=== PATIENT | female | born 1950 | race Caucasian/White ===

== ENCOUNTER 2022-10-27 09:08 | Inpatient (IN) | payer OTHER, MEDICARE, SELFPAY ==
[2022-10-27] VITALS (36 sets, daily range): BP systolic 117–152; BP diastolic 55–95; PULSE 94–133; RESP 16–22; TEMP 36.8; O2SAT 88–100; BMI 30.7
[2022-10-27 09:25] LABS: Add Manual Diff / Slide Review NO; Basophils Absolute Auto 0 /uL (0-100); Basophils Percent Auto 0.1 % (0-2); Eosinophils Absolute Auto 100 /uL (0-450); Eosinophils Percent Auto 0.5 % (2-4); Hematocrit 44.6 % (36-46); Hemoglobin 14.8 g/dL (12.0-16.0); Lymphocytes Absolute Auto 400 /uL (1100-4500); Lymphocytes Percent Auto 3.6 % (25-40); Mean Corpuscular HGB Conc 33.2 % (30-36); Mean Corpuscular Hemoglobin 28.4 PG (26-34); Mean Corpuscular Volume 85.3 fL (80-100); Monocytes Absolute Auto 200 /uL (0-900); Monocytes Percent Auto 2.1 % (3-14); Neutrophils Absolute Auto 10700 /uL (1500-7000); Neutrophils Percent Auto 93.7 % (50-75); Platelet Count 249 X10^3/uL (150-400); Red Blood Cell Count 5.23 X10^6/uL (4.0-5.2); White Blood Cell Count 11.4 X10^3/uL (4.5-11.0)
[2022-10-27 09:41] LABS: Alanine Aminotransferase 37 IU/L (<35); Albumin 4.5 g/dL (3.5-5.0); Albumin Globulin Ratio 1.2 (1.0-2.8); Alkaline Phosphatase 80 U/L (38-126); Aspartate Aminotransferase 30 IU/L (14-36); BUN Creatinine Ratio 23.3 (6-22); Bilirubin Total 0.6 mg/dL (0.2-1.3); Blood Urea Nitrogen 17 mg/dL (7-17); Calcium 9.4 mg/dL (8.4-10.2); Carbon Dioxide 26 mmol/L (22-32); Chloride 104 mmol/L (98-107); Estimated Glomerular Filt Rate > 60 mL/min (>60); Globulin 3.7 g/dL (1.7-4.1); Glucose 154 mg/dL (80-110); HEMOLYSIS < 15 (0-50); Lipase 151 U/L (23-300); Potassium 4.1 mmol/L (3.4-5.1); Sodium 139 mmol/L (137-145); Total Protein 8.2 g/dL (6.3-8.2)
[2022-10-27] MEDS: SODIUM CHLORIDE 0.9% 1,000 ML 1000 ML IV (10:13)
[2022-10-27] MEDS: ONDANSETRON 4 MG/2 ML INJ IV ×3 (10:13→19:34)
--- NOTE | 2022-10-27 10:21 | DI.CT.S_ITS ---
PROCEDURE: CT ABDOMEN PELVIS W CON INDICATIONS: epigastric/upper abd pain, v/d, hx pancreatitis TECHNIQUE: After the administration of intravenous contrast, axial sections acquired from the lung bases to the pubic symphysis. Coronal and sagittal reformats were performed. For radiation dose reduction, the following was used: automated exposure control, adjustment of mA and/or kV according to patient size. COMPARISON: None. FINDINGS: Image quality: Excellent. Lung bases: Unremarkable. Heart: No significant findings. ABDOMEN: Liver: Mild diffuse hepatic steatosis.. Gallbladder: Surgically absent. Post cholecystectomy prominence of the extrahepatic duct lobe without obstructing mass. Biliary ducts: Unremarkable. Pancreas: Unremarkable. Spleen: Unremarkable. Adrenal Glands: Unremarkable. Kidneys and Ureters: Unremarkable. Stomach and Bowel: Mild hiatal hernia. Stomach, small bowel loops, and colon are unremarkable. Appendectomy clips. Peritoneum: No abnormal intraperitoneal fluid. No free air. Ventral Wall: No hernias. Abdominal Nodes: No retroperitoneal or mesenteric adenopathy by size criteria. Vessels: Aorta and inferior vena cava are normal in size. PELVIS: Pelvic Organs: Unremarkable. Bladder: Unremarkable. Pelvic Nodes: No enlarged lymph nodes. Miscellaneous: No hernias are seen. Bones: Lumbar degenerative change. No lytic or blastic bony lesions. No compression fractures. 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 IMPRESSION: 1. No evidence of acute abdominal process. 2. Mild diffuse hepatic steatosis. 3. Remote cholecystectomy. 4. Small hiatal hernia. Dictated by: Terrell Leonard M.D. on 10/27/2022 at 11:10 Approved by: Terrell Leonard M.D. on 10/27/2022 at 11:14
--- NOTE | 2022-10-27 10:22 | ED.ABDPAIN ---
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 this morning epigastric pain, vomiting and diarrhea. Patient states she is had persistent pain will get slightly better after she vomits and then build again until she vomits again. Patient states each time she vomits she is also had diarrhea. She states it has been watery without any bright red blood or black. She states it starting to radiate a little bit towards her back. Patient denies any fevers or chills but states she is felt cold. She denies any chest pain or pressure. No shortness of breath. Denies dysuria urgency or frequency. Patient states she did have pancreatitis about 5 years ago. She states this pain feels similar. 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 She has noted she is been having some GERD symptoms for the past 3 weeks and started Prilosec from [facility] and has been taking that daily she takes Restasis and an allergy pill but no other daily medications. She states she would a cholecystectomy 20 years ago, her last colonoscopy they found a precancerous polyp but required resection based on the location and they removed her appendix at the same time based on location. No tobacco, rare alcohol nothing in the last several weeks. No illicit. Patient sees Dr. Jude Robbins at [facility] is her primary care. Nurse practitioner through gastroenterology is Megan Hopkins with [facility] in [place] and Dr. Enriquez typically does her colonoscopies. Related Data Allergies Allergy/AdvReac Type Severity Reaction Status Date / Time codeine Allergy Verified 10/27/22 09:19 Sulfa (Sulfonamide Allergy Verified 10/27/22 09:19 Antibiotics) Review of Systems Review of Systems ROS Unobtainable: All systems reviewed & are unremarkable except as noted in HPI and below Patient History Social History Smoking Status: Unknown if ever smoked Smoking Status: Unknown if ever smoked alcohol intake frequency: holidays/special occasions only Substance Use Type: does not use Exam Narrative Exam Narrative: GENERAL: Alert and oriented x three, female in [id number] distress. Patient appears uncomfortable. HEENT: Head normocephalic, atraumatic, EOMI, pupils reactive, face symmetric, moist mucous membranes NECK: Supple, full range of motion CARDIOVASCULAR: Regular rate and rhythm without murmurs, rubs or gallops. RESPIRATORY: Breath sounds equal bilaterally, no wheezes rales or rhonchi. ABDOMEN: Soft, nontender. Normoactive bowel sounds all 4 quadrants. No guarding or rebound, rigidity, no mass, no pulsatile mass or bruit. : No CVA tenderness EXTREMITIES: Normal range of motion, no clubbing or edema. Neurovascularly intact NEUROLOGICAL: Cranial nerves II through XII grossly intact. Moving all extremities SKIN: Warm, dry, no petechiae, no rashes or lesions. Initial Vital Signs Initial Vital Signs: Vital Signs Temperature 98.2 F 10/27/22 09:15 Pulse Rate 119 H 10/27/22 09:15 Respiratory Rate 16 10/27/22 09:15 Blood Pressure 148/83 H 10/27/22 09:15 Pulse Oximetry 98 10/27/22 09:15 Oxygen Delivery Method Room Air 10/27/22 09:15 Course Orders Ordered: ED Orders 10/27/22 09:20 Complete Blood Count AUTO DIFF Stat Comprehensive Metabolic Panel Stat Lactate (Lactic Acid) Stat Lipase Stat PTT Partial Thromboplastin Sami Stat Prothrombin Time INR Stat Troponin & CK Cardiac Panel Stat 10/27/22 09:32 EKG-12 Lead Stat 10/27/22 10:05 GI Panel (Film Array) Stat 10/27/22 10:21 CT abdomen pelvis w con Stat 10/27/22 11:55 Blood Culture Stat Lactated Ringer's (Lactated Ringers) 1,000 mls @ 150 mls/hr IV CONT ESTHER Last Admin: 10/27/22 15:34 Dose: 150 mls/hr Documented By: ARLETTE Ondansetron HCl (Ondansetron 4 Mg/2 Ml Inj) 4 mg IV NOW PRN PRN Reason: Nausea And Vomiting Last Admin: 10/27/22 10:13 Dose: 4 mg Documented By: CTS Discontinued Medications Fidaxomicin (Fidaxomicin 200 Mg Tablet) 200 mg PO NOW ONE Stop: 10/27/22 12:19 Last Admin: 10/27/22 12:35 Dose: 200 mg Documented By: ARLETTE Hydromorphone HCl (Hydromorphone 0.5 Mg Inj) 0.5 mg IV NOW ONE Stop: 10/27/22 11:26 Last Admin: 10/27/22 11:53 Dose: 0.5 mg Documented By: ARLETTE Sodium Chloride (Normal Saline 0.9%) 1,000 mls @ 1,000 mls/hr IV BOLUS ONE Stop: 10/27/22 11:08 Last Infusion: 10/27/22 12:35 Dose: 1,000 mls/hr Documented By: Admin: 10/27/22 10:13 Dose: 1,000 mls/hr Documented By: SEVERINO Lactated Ringer's (Lactated Ringers) 1,000 mls @ 1,000 mls/hr IV BOLUS ONE Stop: 10/27/22 13:26 Last Infusion: 10/27/22 15:33 Dose: 0 mls/hr Documented By: Admin: 10/27/22 12:34 Dose: 1,000 mls/hr Documented By: ARLETTE Lactated Ringer's (Lactated Ringers) 1,000 mls @ 1,000 mls/hr IV BOLUS ONE Stop: 10/27/22 17:24 Metoclopramide HCl (Metoclopramide 10 Mg/2 Ml Inj) 10 mg IV NOW ONE Stop: 10/27/22 15:29 Last Admin: 10/27/22 15:33 Dose: 10 mg Documented By: ARLETTE Morphine Sulfate (Morphine 2 Mg/Ml Inj) 2 mg IV NOW ONE Stop: 10/27/22 10:22 Last Admin: 10/27/22 10:50 Dose: 2 mg Documented By: ARLETTE Ondansetron HCl (Ondansetron 4 Mg/2 Ml Inj) 4 mg IV NOW ONE Stop: 10/27/22 12:01 Last Admin: 10/27/22 12:03 Dose: 4 mg Documented By: ARLETTE Pantoprazole Sodium (Pantoprazole 40 Mg Vial) 80 mg IV NOW ONE Stop: 10/27/22 12:18 Last Admin: 10/27/22 12:32 Dose: 80 mg Documented By: ARLETTE Vital Signs Vital signs: Vital Signs - 8 hr 10/27/22 10:00 10/27/22 10:30 10/27/22 11:01 Pulse Rate 127 H 116 H 110 H Blood Pressure Pulse Oximetry 97 100 98 Oxygen Delivery Method Oxygen Flow Rate 10/27/22 11:33 10/27/22 12:00 10/27/22 12:09 Pulse Rate 116 H 115 H Blood Pressure 126/59 L Pulse Oximetry 100 99 Oxygen Delivery Method Oxygen Flow Rate 10/27/22 12:09 10/27/22 12:14 10/27/22 12:14 Pulse Rate 105 H 94 H Blood Pressure 128/60 Pulse Oximetry 96 95 Oxygen Delivery Method Oxygen Flow Rate 10/27/22 12:15 10/27/22 12:15 10/27/22 12:30 Pulse Rate 94 H Blood Pressure 126/62 141/83 H Pulse Oximetry 92 Oxygen Delivery Method Oxygen Flow Rate 10/27/22 12:30 10/27/22 12:45 10/27/22 12:45 Pulse Rate 96 H 101 H Blood Pressure 137/80 Pulse Oximetry 89 L 92 Oxygen Delivery Method Nasal Cannula Nasal Cannula Oxygen Flow Rate 2 5 10/27/22 13:00 10/27/22 13:00 10/27/22 13:15 Pulse Rate 101 H 99 H Blood Pressure 128/70 Pulse Oximetry 99 98 Oxygen Delivery Method Oximask Oximask Oxygen Flow Rate 4 2 10/27/22 13:15 10/27/22 13:30 10/27/22 13:30 Pulse Rate 95 H Blood Pressure 149/87 H 143/78 H Pulse Oximetry 99 Oxygen Delivery Method Oxygen Flow Rate 10/27/22 13:45 10/27/22 13:45 10/27/22 14:00 Pulse Rate 97 H 103 H Blood Pressure 143/76 H Pulse Oximetry 99 95 Oxygen Delivery Method Oximask Oxygen Flow Rate 2 10/27/22 14:01 10/27/22 14:01 10/27/22 14:15 Pulse Rate 107 H Blood Pressure 142/76 H 152/95 H Pulse Oximetry 93 Oxygen Delivery Method Oxygen Flow Rate 10/27/22 14:15 10/27/22 14:30 10/27/22 14:30 Pulse Rate 99 H 99 H Blood Pressure 144/78 H Pulse Oximetry 90 L 97 Oxygen Delivery Method Oximask Oxygen Flow Rate 2 10/27/22 14:45 10/27/22 14:45 10/27/22 15:00 Pulse Rate 98 H Blood Pressure 143/73 H 144/76 H Pulse Oximetry 97 Oxygen Delivery Method Oxygen Flow Rate 10/27/22 15:00 10/27/22 15:30 10/27/22 15:30 Pulse Rate 102 H 121 H Blood Pressure 143/65 H Pulse Oximetry 97 93 Oxygen Delivery Method Oximask Room Air Oxygen Flow Rate 2 10/27/22 15:45 10/27/22 15:45 10/27/22 16:00 Pulse Rate 114 H Blood Pressure 127/62 129/62 Pulse Oximetry 91 Oxygen Delivery Method Oxygen Flow Rate 10/27/22 16:00 10/27/22 16:15 10/27/22 16:15 Pulse Rate 108 H 108 H Blood Pressure 134/60 Pulse Oximetry 88 L 96 Oxygen Delivery Method Room Air Oximask Oxygen Flow Rate 2 MDM - Abdominal Pain Lab Data 10/27/22 09:20 10/27/22 09:20 Labs: Lab Results 10/27/22 10/27/22 10/27/22 Range/Units 09:20 09:20 09:20 WBC 11.4 H (4.5-11.0) X10^3/uL RBC 5.23 H (4.0-5.2) X10^6/uL Hgb 14.8 (12.0-16.0) g/dL Hct 44.6 (36-46) % MCV 85.3 (80-100) fL MCH 28.4 (26-34) PG MCHC 33.2 (30-36) % RDW 14.0 (11.6-14.8) % Plt Count 249 (150-400) X10^3/uL Neut % (Auto) 93.7 H (50-75) % Lymph % (Auto) 3.6 L (25-40) % Lipscomb % (Auto) 2.1 L (3-14) % Eos % (Auto) 0.5 L (2-4) % Baso % (Auto) 0.1 (0-2) % Neut # (Auto) 49003 H (6364-0176) /uL Lymph # (Auto) 400 L (7509-7623) /uL Lipscomb # (Auto) 200 (0-900) /uL Eos # (Auto) 100 (0-450) /uL Baso # (Auto) 0 (0-100) /uL PT 11.9 (10.1-12.7) SECONDS INR 1.0 (0.9-1.3) APTT 30 (26-36) SECONDS Sodium 139 (137-145) mmol/L Potassium 4.1 (3.4-5.1) mmol/L Chloride 104 (98-107) mmol/L Carbon Dioxide 26 (22-32) mmol/L BUN 17 (7-17) mg/dL Creatinine 0.73 (0.52-1.04) mg/dL Estimated GFR > 60 (>60) mL/min BUN/Creatinine Ratio 23.3 H (6-22) Glucose 154 H (80-110) mg/dL Lactate (0.7-2.1) mmol/L Calcium 9.4 (8.4-10.2) mg/dL Total Bilirubin 0.6 (0.2-1.3) mg/dL AST 30 (14-36) IU/L ALT 37 H (<35) IU/L Alkaline Phosphatase 80 (38-126) U/L Total Creatine Kinase (30-135) U/L CK-MB (CK-2) CK-MB (CK-2) Rel Index Troponin I (0.01-0.034) ng/mL Total Protein 8.2 (6.3-8.2) g/dL Albumin 4.5 (3.5-5.0) g/dL Globulin 3.7 (1.7-4.1) g/dL Albumin/Globulin Ratio 1.2 (1.0-2.8) Lipase 151 (23-300) U/L Stl C. cayetanensis PCR (Not Detect) Stool Rotavirus (PCR) (Not Detect) Stool Adenovirus (PCR) (Not Detect) Stool Astrovirus (PCR) (Not Detect) Stool Cryptosporidium PCR (Not Detect) Stl E.coli Shiga Tox PCR (Not Detect) St Sh/Enteroin Ecoli PCR (Not Detect) Stool E coli O157 PCR (Not Detect) Stl Enterotoxigenic E PCR (Not Detect) Stool EPEC (PCR) (Not Detect) Stl E. histolytica PCR (Not Detect) Stool Giardia Lamblia PCR (Not Detect) Stool Sapovirus (PCR) (Not Detect) Stl P. shigelloides PCR (Not Detect) St Y.enterocolitica PCR (Not Detect) Stool Vibrio (PCR) (Not Detect) Stl Vibrio cholerae PCR (Not Detect) Stl Enteroaggr Ecoli PCR (Not Detect) Stl Norovirus GI/GII PCR (Not Detect) Campylobacter (PCR) (Not Detect) C. difficile Tox (PCR) (Not Detect) Salmonella (PCR) (Not Detect) 10/27/22 10/27/22 10/27/22 Range/Units 09:20 09:20 10:05 WBC (4.5-11.0) X10^3/uL RBC (4.0-5.2) X10^6/uL Hgb (12.0-16.0) g/dL Hct (36-46) % MCV (80-100) fL MCH (26-34) PG MCHC (30-36) % RDW (11.6-14.8) % Plt Count (150-400) X10^3/uL Neut % (Auto) (50-75) % Lymph % (Auto) (25-40) % Lipscomb % (Auto) (3-14) % Eos % (Auto) (2-4) % Baso % (Auto) (0-2) % Neut # (Auto) (2927-1365) /uL Lymph # (Auto) (1413-5572) /uL Lipscomb # (Auto) (0-900) /uL Eos # (Auto) (0-450) /uL Baso # (Auto) (0-100) /uL PT (10.1-12.7) SECONDS INR (0.9-1.3) APTT (26-36) SECONDS Sodium (137-145) mmol/L Potassium (3.4-5.1) mmol/L Chloride (98-107) mmol/L Carbon Dioxide (22-32) mmol/L BUN (7-17) mg/dL Creatinine (0.52-1.04) mg/dL Estimated GFR (>60) mL/min BUN/Creatinine Ratio (6-22) Glucose (80-110) mg/dL Lactate 1.8 (0.7-2.1) mmol/L Calcium (8.4-10.2) mg/dL Total Bilirubin (0.2-1.3) mg/dL AST (14-36) IU/L ALT (<35) IU/L Alkaline Phosphatase (38-126) U/L Total Creatine Kinase 44 (30-135) U/L CK-MB (CK-2) TNP CK-MB (CK-2) Rel Index TNP Troponin I < 0.012 (0.01-0.034) ng/mL Total Protein (6.3-8.2) g/dL Albumin (3.5-5.0) g/dL Globulin (1.7-4.1) g/dL Albumin/Globulin Ratio (1.0-2.8) Lipase (23-300) U/L Stl C. cayetanensis PCR Not detected (Not Detect) Stool Rotavirus (PCR) Not detected (Not Detect) Stool Adenovirus (PCR) Not detected (Not Detect) Stool Astrovirus (PCR) Not detected (Not Detect) Stool Cryptosporidium PCR Not detected (Not Detect) Stl E.coli Shiga Tox PCR Not detected (Not Detect) St Sh/Enteroin Ecoli PCR Not detected (Not Detect) Stool E coli O157 PCR Not detected (Not Detect) Stl Enterotoxigenic E PCR Not detected (Not Detect) Stool EPEC (PCR) Not detected (Not Detect) Stl E. histolytica PCR Not detected (Not Detect) Stool Giardia Lamblia PCR Not detected (Not Detect) Stool Sapovirus (PCR) Not detected (Not Detect) Stl P. shigelloides PCR Not detected (Not Detect) St Y.enterocolitica PCR Not detected (Not Detect) Stool Vibrio (PCR) Not detected (Not Detect) Stl Vibrio cholerae PCR Not detected (Not Detect) Stl Enteroaggr Ecoli PCR Not detected (Not Detect) Stl Norovirus GI/GII PCR Detected H (Not Detect) Campylobacter (PCR) Not detected (Not Detect) C. difficile Tox (PCR) Detected H (Not Detect) Salmonella (PCR) Not detected (Not Detect) Imaging Data CT scan - abdomen/pelvis: Radiologist's Impression: Close Abdomen/Pelvis CT (Signed) Terrell Leonard - 10/27/22 Launch?[address] [address] [address] Scan Report Signed Patient: Kathleen Linda MR#: [id number] : 1950 Acct:[id number] Age/Sex: 72 / F Date of Service: 10/27/22 Loc: ED Accession Number: [id number] ?? Procedure: CT abdomen pelvis w con Ordering Provider: Lizzie Alexander D.O. PROCEDURE:? CT ABDOMEN PELVIS W CON ? INDICATIONS:? epigastric/upper abd pain, v/d, hx pancreatitis ? TECHNIQUE:? After the administration of intravenous contrast, axial sections acquired from the lung bases to the pubic symphysis.? Coronal and sagittal reformats were performed.? For radiation dose reduction, the following was used:? automated exposure control, adjustment of mA and/or kV according to patient size.? ? COMPARISON:? None. ? FINDINGS:? Image quality:? Excellent.? ? Lung bases:? Unremarkable. Heart:? No significant findings. ? ABDOMEN: Liver:? Mild diffuse hepatic steatosis..? ? Gallbladder:? Surgically absent.? Post cholecystectomy prominence of the extrahepatic duct lobe without obstructing mass. Biliary ducts:? Unremarkable.? ? Pancreas:? Unremarkable.? ? Spleen:? Unremarkable.? ? Adrenal Glands:? Unremarkable.? ? Kidneys and Ureters:? Unremarkable.? ? ? Stomach and Bowel:? Mild hiatal hernia.? Stomach, small bowel loops, and colon are unremarkable.? Appendectomy clips. Peritoneum:? No abnormal intraperitoneal fluid.? No free air.? ? Ventral Wall: ? No hernias.? Abdominal Nodes:? No retroperitoneal or mesenteric adenopathy by size criteria.? Vessels:? Aorta and inferior vena cava are normal in size.? ? PELVIS: Pelvic Organs:? Unremarkable.? ? Bladder:? Unremarkable.? ? Pelvic Nodes: No enlarged lymph nodes.? Miscellaneous: No hernias are seen. ? ? ? Bones:? Lumbar degenerative change.? No lytic or blastic bony lesions.? No compression fractures.? 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 ? ? IMPRESSION:? ? 1. No evidence of acute abdominal process. ? 2. Mild diffuse hepatic steatosis. ? 3. Remote cholecystectomy. ? 4. Small hiatal hernia.? ? ? Dictated by: Terrell Leonard M.D. on 10/27/2022 at 11:10 ? ? Approved by: Terrell Leonard M.D. on 10/27/2022 at 11:14?? ECG Data Attestation: I personally reviewed and interpreted this ECG as follows: Prior ECG tracings: not available for review Interpretation: Sinus tachycardia rate of 125 WI 156 QRS is 74 QTC of 447. No acute ST elevation or depression appreciated. No prior available for review. MDM Narrative Medical decision making narrative: This is a 72-year-old female who presents with complaint of epigastric pain with sudden onset this morning at about 3:00 a.m. with nausea vomiting and diarrhea that has been persistent. Patient denies black or bloody stools. She states pain does radiate somewhat towards her back. She has had pancreatitis about 5 years ago she denies recurrent episodes but states this feels similar. 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 Patient had labs including CBC, CMP and lipase, electrolytes, renal function, LFTs show an AST ALT of 37 normal bilirubin lipase of 151, patient is a mild leukocytosis of 11.4, leftward shift, no bandemia. Patient is noted to be sinus tachycardia in the 120s to 110s, patient had lactate blood cultures and plan for CT abdomen pelvis for further evaluation. CT abdomen pelvis shows no evidence acute abdominal process mild diffuse hepatic steatosis and small hiatal hernia. Patient's was able to give stool sample she is positive for norovirus and C diff on her stool sample, C diff was sent out for confirmatory testing. Patient was quite painful she would a dose of morphine with minimal improvement. Was given a dose of Dilaudid this was helpful for her pain but then she dropped her O2 sat slightly. She Behavioral in conversant easily. I do not feel she requires Narcan we will continue to monitor given a 2 L of fluids with LR. We will give a dose of oral antibiotic for Dificid and depending on if she is able to tolerate orals may require observation. Patient tolerated oral Dificid but did have some persistent low O2 was improving but then tried an oral challenge with liquids and vomited again despite additional antinausea medications. Patient does not seem to be tolerating orals persistently and discussed with Dr. Quesada who accepts for observation he asks if we will add an additional 1L of LR patient has had two and then at 150mL currently. Accepts for observation. Discharge Plan Departure Patient Disposition: Admitted as Observation Clinical Impression: Abdominal pain, vomiting, and diarrhea, Hepatic steatosis, Infection due to Norovirus species, C. difficile diarrhea Admit Date/Time: 10/27/22 16:27 Admit Provider: Jeffry Garza
[2022-10-27] MEDS: MORPHINE 2 MG/ML INJ IV (10:50)
[2022-10-27] MEDS: HYDROMORPHONE 0.5 MG INJ IV ×2 (11:53→19:34)
[2022-10-27 12:01] LABS: Prothrombin Time 11.9 SECONDS (10.1-12.7)
[2022-10-27 12:03] LABS: Adenovirus F 40/41 Not Detected (Not Detect); Campylobacter Not Detected (Not Detect); Cryptosporidium Not Detected (Not Detect); Cyclospora cayetanensis Not Detected (Not Detect); Entamoeba histolytica Not Detected (Not Detect); Enteroaggregative E.coli Not Detected (Not Detect); Enteropathogenic E.coli Not Detected (Not Detect); Enterotoxigenic E.coli It/st Not Detected (Not Detect); Giardia lamblia Not Detected (Not Detect); Plesiomonsa shigelloides Not Detected (Not Detect); Salmonella Not Detected (Not Detect); Shiga-like toxin-prod E.coli Not Detected (Not Detect); Shigella/Enteroinvasive E.coli Not Detected (Not Detect); Vibrio Not Detected (Not Detect); Vibrio cholerae Not Detected (Not Detect); Yersinia enterocolitica Not Detected (Not Detect)
[2022-10-27 12:04] LABS: Astrovirus Not Detected (Not Detect); Norovirus GI/GII Detected (Not Detect); Rotavirus A Not Detected (Not Detect); Sapovirus Not Detected (Not Detect)
[2022-10-27 12:04] LABS: PTT Partial Thromboplastin Tim 30 SECONDS (26-36)
[2022-10-27 12:05] LABS: Creatine Kinase 44 U/L (30-135)
[2022-10-27 12:05] LABS: Clostridium difficile toxin AB Detected (Not Detect)
[2022-10-27 12:06] LABS: Lactate (Lactic Acid) 1.8 mmol/L (0.7-2.1)
[2022-10-27 12:19] LABS: Troponin I < 0.012 ng/mL (0.01-0.034)
[2022-10-27] MEDS: PANTOPRAZOLE 40 MG VIAL 80 MG IV (12:32)
[2022-10-27] MEDS: LACTATED RINGERS 1,000 ML 1000 ML IV (12:34)
[2022-10-27] MEDS: FIDAXOMICIN 200 MG TABLET PO (12:35)
--- NOTE | 2022-10-27 13:12 | PC.NURSE ---
Pt excessively sleepy after dilaudid 0.5mg, placed on 2L initially to maintain <92%, then 5L to maintain <92% and now 4L on Oximask for 99%. Provider aware and consulted throughout the process.
[2022-10-27] MEDS: METOCLOPRAMIDE 10 MG/2 ML INJ IV (15:33)
[2022-10-27] MEDS: LACTATED RINGERS 1,000 ML 150 ML IV ×2 (15:34→22:10)
--- NOTE | 2022-10-27 15:38 | PC.NURSE ---
PO challenge at 1430, seemed to tolerate well. Then at 1515 pt woke up and vomited for 2-3 mins nonstop with explosive watery diarrhea. Physician aware.
--- NOTE | 2022-10-27 20:03 | P.HP_ITS ---
History of Present Illness History of Present Illness Date Patient Seen: 10/27/22 Time Patient Seen: 16:35 Chief complaint: V/D/ABD pain feels like pancreatitis since 3am Narrative: Kathleen Linda is a 72-year-old female with history of prior pancreatitis, GERD, split pancreas with two bile ducts, dry eye arrived in ED with complaint of sudden onset 3:00 a.m. this morning epigastric pain, vomiting and diarrhea.? Patient states she is had persistent pain, radiates to her back, will get slightly better after she vomits and then build again until she vomits again.? Diarrhea watery without any bright red blood or black.?Patient denies any fevers or chills but states she is felt cold. Cholecystectomy 20 years ago, her last colonoscopy they found a precancerous polyp but required resection based on the location and they removed her appendix at the same time based on location.? No tobacco, rare alcohol nothing in the last several weeks.? No illicit.? Patient sees Dr. Jude Robbins at [facility] is her primary care.? Nurse practitioner through gastroenterology is Megan Hopkins with [facility] in [place] and Dr. Enriquez typically does her colonoscopies.? On admit patient boarding in ED, last vomited at 3:00 p.m. earlier today but continues to have ongoing diarrhea, failed oral challenge in the ED and is unable to keep anything down without vomiting, abdominal pain is controlled with medication. Patient's vitals 98.2, 127/55, continues to be tachycardic 100-110, 16, 93% on 2 L. WBC 11.4, neutrophils 10,700, lymph 400, glucose 154, lactate, troponin are WNL, lipase 151. Patient's abdomen pelvis CT no acute issues, hepatic steatosis small hiatal hernia. EKG sinus tachycardia rate [address] or T-wave changes. Patient is stable resting well in no distress, positive for C diff and norovirus. Admitted for observation. On admit patient denies chest pain, shortness in breath, headache, changes in vision, difficulty swallowing, speech impairment, numbness, tingling, difficulty with ambulation, recent falls, head injury, LOC, fever, body aches, chills, cough, recent exposure to illness, urinary incontinence/retention, dysuria, frequency, urgency, hematuria, melena, rashes, recent changes to medication, illness, injury, or trauma. [facility] Medical History (Updated 10/28/22 @ 00:50 by EMERSON Gabriel) History of pancreatitis Surgical History (Updated 10/28/22 @ 00:50 by EMERSON Gabriel) History of appendectomy History of cholecystectomy Family History Father No problems noted. Mother No problems noted. Social History Smoking Status: Unknown if ever smoked Meds Home Medications and Allergies Allergies Allergy/AdvReac Type Severity Reaction Status Date / Time codeine Allergy Verified 10/27/22 09:19 Sulfa (Sulfonamide Allergy Verified 10/27/22 09:19 Antibiotics) Review of Systems Review of Systems Narrative: All 12 point systems reviewed with the patient and are negative except otherwise documented. Exam Vital Signs (past 8 hours): - 10/27/22 12:09 10/27/22 12:09 10/27/22 12:14 Pulse Rate 105 H Blood Pressure 126/59 L 128/60 Pulse Oximetry 96 Oxygen Delivery Method Oxygen Flow Rate 10/27/22 12:14 10/27/22 12:15 10/27/22 12:15 Pulse Rate 94 H 94 H Blood Pressure 126/62 Pulse Oximetry 95 92 Oxygen Delivery Method Oxygen Flow Rate 10/27/22 12:30 10/27/22 12:30 10/27/22 12:45 Pulse Rate 96 H Blood Pressure 141/83 H 137/80 Pulse Oximetry 89 L Oxygen Delivery Method Nasal Cannula Oxygen Flow Rate 2 10/27/22 12:45 10/27/22 13:00 10/27/22 13:00 Pulse Rate 101 H 101 H Blood Pressure 128/70 Pulse Oximetry 92 99 Oxygen Delivery Method Nasal Cannula Oximask Oxygen Flow Rate 5 4 10/27/22 13:15 10/27/22 13:15 10/27/22 13:30 Pulse Rate 99 H Blood Pressure 149/87 H 143/78 H Pulse Oximetry 98 Oxygen Delivery Method Oximask Oxygen Flow Rate 2 10/27/22 13:30 10/27/22 13:45 10/27/22 13:45 Pulse Rate 95 H 97 H Blood Pressure 143/76 H Pulse Oximetry 99 99 Oxygen Delivery Method Oxygen Flow Rate 10/27/22 14:00 10/27/22 14:01 10/27/22 14:01 Pulse Rate 103 H 107 H Blood Pressure 142/76 H Pulse Oximetry 95 93 Oxygen Delivery Method Oximask Oxygen Flow Rate 2 10/27/22 14:15 10/27/22 14:15 10/27/22 14:30 Pulse Rate 99 H Blood Pressure 152/95 H 144/78 H Pulse Oximetry 90 L Oxygen Delivery Method Oximask Oxygen Flow Rate 2 10/27/22 14:30 10/27/22 14:45 10/27/22 14:45 Pulse Rate 99 H 98 H Blood Pressure 143/73 H Pulse Oximetry 97 97 Oxygen Delivery Method Oxygen Flow Rate 10/27/22 15:00 10/27/22 15:00 10/27/22 15:30 Pulse Rate 102 H Blood Pressure 144/76 H 143/65 H Pulse Oximetry 97 Oxygen Delivery Method Oximask Oxygen Flow Rate 2 10/27/22 15:30 10/27/22 15:45 10/27/22 15:45 Pulse Rate 121 H 114 H Blood Pressure 127/62 Pulse Oximetry 93 91 Oxygen Delivery Method Room Air Oxygen Flow Rate 10/27/22 16:00 10/27/22 16:00 10/27/22 16:15 Pulse Rate 108 H Blood Pressure 129/62 134/60 Pulse Oximetry 88 L Oxygen Delivery Method Room Air Oxygen Flow Rate 10/27/22 16:15 10/27/22 16:30 10/27/22 16:30 Pulse Rate 108 H 106 H Blood Pressure 128/62 Pulse Oximetry 96 95 Oxygen Delivery Method Oximask Oximask Oxygen Flow Rate 2 2 10/27/22 16:45 10/27/22 16:45 10/27/22 17:00 Pulse Rate 107 H Blood Pressure 117/60 127/55 L Pulse Oximetry 95 Oxygen Delivery Method Oxygen Flow Rate 10/27/22 17:00 Pulse Rate 110 H Blood Pressure Pulse Oximetry 93 Oxygen Delivery Method Oximask Oxygen Flow Rate 2 Oxygen Delivery Method Oximask Oxygen Flow Rate 2 Narrative Exam Narrative: General: Patient is a well-developed, well-nourished ill appearing female in no distress at this time. HEENT: Normocephalic, atraumatic, extraocular muscles intact, oral pharynx is clear and mucous membranes are moist. Neck is supple and symmetric, trachea is midline, no adenopathy, no thyroid enlargement, nontender, no masses palpated. Negative for JVD Chest: Normal AP diameter and contour without kyphoscoliosis, no nasal flaring, retractions, or tachypneic labored Lungs: Auscultation of all lung hernandez are clear without adventitious sounds, wheezes, rhonchi, or rales. Cardio: S1 & S2 with regular rate and rhythm without murmur, rubs, or gallops, no carotid bruit, no cardiac pulsations present. Abdomen: Soft tender, negative for organomegaly, or masses. Bowel sounds are hyperactive present in all 4 quadrants without guarding or rebound, no CVA tenderness. Musculoskeletal: Muscle strength and tone are equal within normal limits, no d eformity, crepitus, effusions, cyanosis, clubbing or edema present. Full range of motion intact radial and pedal pulses are normal. Skin: Warm dry and intact without rashes, ulcerations or petechiae. Neuro: Alert and orientated x3, strength is +5/5 in all extremities, sensation to touch intact, no gross deficits noted of cranial nerves. Psych: Patient has a well-kept appearance, appropriate affect, mental status attitude thought context and judgment are appropriate for age. Objective Labs 10/27/22 09:20 10/27/22 09:20 Labs: Laboratory Results - last 24 hr 10/27/22 10/27/22 10/27/22 09:20 09:20 09:20 WBC 11.4 H RBC 5.23 H Hgb 14.8 Hct 44.6 MCV 85.3 MCH 28.4 MCHC 33.2 RDW 14.0 Plt Count 249 Neut % (Auto) 93.7 H Lymph % (Auto) 3.6 L [place] % (Auto) 2.1 L Eos % (Auto) 0.5 L Baso % (Auto) 0.1 Neut # (Auto) 01436 H Lymph # (Auto) 400 L [place] # (Auto) 200 Eos # (Auto) 100 Baso # (Auto) 0 PT 11.9 INR 1.0 APTT 30 Sodium 139 Potassium 4.1 Chloride 104 Carbon Dioxide 26 BUN 17 Creatinine 0.73 Estimated GFR > 60 BUN/Creatinine Ratio 23.3 H Glucose 154 H Lactate Calcium 9.4 Total Bilirubin 0.6 AST 30 ALT 37 H Alkaline Phosphatase 80 Total Creatine Kinase CK-MB (CK-2) CK-MB (CK-2) Rel Index Troponin I Total Protein 8.2 Albumin 4.5 Globulin 3.7 Albumin/Globulin Ratio 1.2 Lipase 151 Stl C. cayetanensis PCR Stool Rotavirus (PCR) Stool Adenovirus (PCR) Stool Astrovirus (PCR) Stool Cryptosporidium PCR Stl E.coli Shiga Tox PCR St Sh/Enteroin Ecoli PCR Stool E coli O157 PCR Stl Enterotoxigenic E PCR Stool EPEC (PCR) Stl E. histolytica PCR Stool Giardia Lamblia PCR Stool Sapovirus (PCR) Stl P. shigelloides PCR St Y.enterocolitica PCR Stool Vibrio (PCR) Stl Vibrio cholerae PCR Stl Enteroaggr Ecoli PCR Stl Norovirus GI/GII PCR Campylobacter (PCR) C. difficile Tox (PCR) Salmonella (PCR) 10/27/22 10/27/22 10/27/22 09:20 09:20 10:05 WBC RBC Hgb Hct MCV MCH MCHC RDW Plt Count Neut % (Auto) Lymph % (Auto) [place] % (Auto) Eos % (Auto) Baso % (Auto) Neut # (Auto) Lymph # (Auto) [place] # (Auto) Eos # (Auto) Baso # (Auto) PT INR APTT Sodium Potassium Chloride Carbon Dioxide BUN Creatinine Estimated GFR BUN/Creatinine Ratio Glucose Lactate 1.8 Calcium Total Bilirubin AST ALT Alkaline Phosphatase Total Creatine Kinase 44 CK-MB (CK-2) TNP CK-MB (CK-2) Rel Index TNP Troponin I < 0.012 Total Protein Albumin Globulin Albumin/Globulin Ratio Lipase Stl C. cayetanensis PCR Not detected Stool Rotavirus (PCR) Not detected Stool Adenovirus (PCR) Not detected Stool Astrovirus (PCR) Not detected Stool Cryptosporidium PCR Not detected Stl E.coli Shiga Tox PCR Not detected St Sh/Enteroin Ecoli PCR Not detected Stool E coli O157 PCR Not detected Stl Enterotoxigenic E PCR Not detected Stool EPEC (PCR) Not detected Stl E. histolytica PCR Not detected Stool Giardia Lamblia PCR Not detected Stool Sapovirus (PCR) Not detected Stl P. shigelloides PCR Not detected St Y.enterocolitica PCR Not detected Stool Vibrio (PCR) Not detected Stl Vibrio cholerae PCR Not detected Stl Enteroaggr Ecoli PCR Not detected Stl Norovirus GI/GII PCR Detected H Campylobacter (PCR) Not detected C. difficile Tox (PCR) Detected H Salmonella (PCR) Not detected Assessment & Plan Assessment & Plan narrative: Kathleen Linda is a 72-year-old female with history of prior pancreatitis, GERD, split pancreas with two bile ducts, dry eyes that is being admitted for intractable nausea vomiting diarrhea secondary to norovirus and Clostridium difficile. 1. Norovirus, acute, present on admission -with intractable nausea vomiting, tachycardia -antiemetics, pain management -fluids LR at 150 cc/HR -patient to advance diet as tolerated. -failed oral challenge in ED. 2. Clostridium difficile, acute, present on admit -isolation precautions -Fidaxomicin BID -LR -may consider Imodium when patient is able to tolerate orals -calamine mixed with lidocaine to external rectal area for skin irritation. 3. GERD, chronic, present on admission -famotidine 4. Overweight, moderate, acute on chronic, present on admission -BMI 30.7 -dietary consult ordered regarding nutritional education and information for dietary, lifestyle, exercise, and weight changes. -the patient is at much higher risk for medical and surgical complications due to obesity as it relates to chronic illnesses:, and acute illness. The patient's obesity increases the difficulty and complexity of medical and/or faustino gical interventions, management and increases the chances of poor outcome such as morbidity and mortality as well as impaired wound healing. Code status:Full Surrogate decision maker: Stas Linda spouse COVID PCR:Negative DVT/VTE prophylaxis: Lovenox and SCDs Disposition: Patient admitted for observation for rehydration and resolution of intractable nausea vomiting diarrhea, tachycardia expected length of stay less than 2 midnights. I have utilized all available immediate resources to obtain, update, or review the patient's current medications. I confirmed that the patient's advanced care plan is present, Code status is documented and/or surrogate decision maker is listed in the patient's medical record. I have personally reviewed patient's chart notes from PCP, specialists, diagnostic imaging, and laboratory results.
[2022-10-27] MEDS: FAMOTIDINE 20 MG/2 ML VIAL IV (20:35)
[2022-10-28] VITALS (10 sets, daily range): BP systolic 117–164; BP diastolic 56–80; PULSE 66–101; RESP 16–20; TEMP 36.2–36.8; O2SAT 91–98; BMI 30.7
[2022-10-28 01:08] LABS: COVID19 -Nasal RAPID Negative (Negative)
[2022-10-28] MEDS: OXYCODONE IR 5 MG TABLET PO (02:26)
[2022-10-28] MEDS: ONDANSETRON 4 MG/2 ML INJ IV ×3 (02:27→13:45)
[2022-10-28 04:51] LABS: Add Manual Diff / Slide Review NO; Basophils Absolute Auto 0 /uL (0-100); Basophils Percent Auto 0.1 % (0-2); Eosinophils Absolute Auto 0 /uL (0-450); Eosinophils Percent Auto 0.3 % (2-4); Hematocrit 37.6 % (36-46); Hemoglobin 12.3 g/dL (12.0-16.0); Lymphocytes Absolute Auto 400 /uL (1100-4500); Lymphocytes Percent Auto 6.3 % (25-40); Mean Corpuscular HGB Conc 32.8 % (30-36); Mean Corpuscular Hemoglobin 27.8 PG (26-34); Mean Corpuscular Volume 84.7 fL (80-100); Monocytes Absolute Auto 300 /uL (0-900); Neutrophils Absolute Auto 5000 /uL (1500-7000); Neutrophils Percent Auto 87.3 % (50-75); Platelet Count 184 X10^3/uL (150-400); Red Blood Cell Count 4.44 X10^6/uL (4.0-5.2); Red Cell Distribution Width 14.1 % (11.6-14.8); White Blood Cell Count 5.8 X10^3/uL (4.5-11.0)
[2022-10-28 04:58] LABS: BUN Creatinine Ratio 15.9 (6-22); Blood Urea Nitrogen 10 mg/dL (7-17); Calcium 8.2 mg/dL (8.4-10.2); Carbon Dioxide 29 mmol/L (22-32); Chloride 102 mmol/L (98-107); Estimated Glomerular Filt Rate > 60 mL/min (>60); Glucose 112 mg/dL (80-110); HEMOLYSIS < 15 (0-50); Magnesium 1.5 mg/dL (1.6-2.3); Potassium 3.9 mmol/L (3.4-5.1); Sodium 136 mmol/L (137-145)
[2022-10-28] MEDS: LACTATED RINGERS 1,000 ML 150 ML IV ×3 (06:09→17:24)
[2022-10-28] MEDS: MAGNESIUM SULFATE 2 GM/50 ML PIGGYBACK IV (07:39)
[2022-10-28] MEDS: HYDROMORPHONE 0.5 MG INJ IV (07:47)
[2022-10-28] MEDS: FAMOTIDINE 20 MG/2 ML VIAL IV ×2 (09:27→20:45)
[2022-10-28] MEDS: ENOXAPARIN 40 MG/0.4 ML SYRINGE SUBCUT (09:27)
[2022-10-28] MEDS: FIDAXOMICIN 200 MG TABLET PO ×2 (09:28→20:44)
--- NOTE | 2022-10-28 12:49 | CM.IDA ---
Initial Brief DCP Assessment Patient is 72 y/o female who presents to due to concern for N/V/D and epigastric pain. Patient was diagnosed with Norovirus and C. Diff. Patient has hx of Pancreatitis and GERD. Patient's PCP is Dr. Robbins at [facility], Patient has [employer] and Medicare Part A insurance. GOVERNMENT AFFAIRS RESEARCHER does not enter room due to patient's diagnosis. Patient lives in [place] with spouse and works at [employer]. This GOVERNMENT AFFAIRS RESEARCHER has spoken with patient on phone several times in patient's professional role. Per RN Patient is A/Ox4 and able to ambulate. There is no concerns with patient's ability to manage ADLs at home. Patient is admitted for further evaluation and treatment regarding Norovirus and C. Diff diagnosis. Plan: DCP to f/u with any anticipated DCP needs, no needs at this time. JULIEN Calwdell Discharge Planning/Care Management CM Discharge Assessment Start: 10/28/22 12:47 Freq: Status: Active Protocol: Document 10/28/22 12:48 LN (Rec: 10/28/22 12:49 LN [id number]) Discharge Planning Assessment Assigned Manager Business Intelligence JULIEN Calloway Advance Directives? No History Provided By Medical Record Has Patient been admitted in last 30 No days? Prior Living Arrangements House Household Members spouse Type of transporation used prior to Drives own vehicle admit Independent with ADL's Yes Is patient alert and oriented? Yes Additional Comment DCP to f/u regarding POC needs , none needed at this time. Please Provide Date Initial DC 10/28/22 Assessment Was Performed
--- NOTE | 2022-10-28 14:40 | DIET.CONS ---
Dietary Consultation Note Admission Date: 10/28/2022 09:50 Assessment: RD consulted for BMI 30.7. Rec OP nutrition therapy prn. Ht: 167.64 cm Wt: 86.183 kg BMI: 30.7 Electronically Signed by: Ml Zimmer 10/28/22 14:40 Clinical Dietitian [address] [address]
--- NOTE | 2022-10-28 16:57 | P.PN_ITS ---
Subjective Subjective Interval history: 72-year-old Female with GERD, history of pancreatitis, split pancreas with 2 bile ducts (?pancreas divisum), GERD was admitted last evening with C diff colitis. Patient reports she would done well for approximately 12 hours, but about an hour ago developed incontinence of stool. She states her urine output has picked up on the IV fluids she is been receiving. She has had some abdominal cramping which seems to be improved with IV antiemetics. She notes she is only held down approximately 7-1/2 oz of jaja mamadou today. Exam Vital Signs (past 8 hours): - 10/28/22 11:55 10/28/22 11:54 10/28/22 11:54 Pulse Rate 95 H 94 H Respiratory Rate 18 Blood Pressure 134/71 134/71 Pulse Oximetry 95 94 Oxygen Delivery Method Room Air Oxygen Delivery Method Room Air Oxygen Flow Rate 2 Narrative Exam Narrative: GEN: Pleasant middle-aged female, Alert and oriented x 3, NAD HEENT:NC, Face symmetric CHEST: Respiratory excursions symmetric, CTAB CV: RRR, no M/R/G ABD: Soft, NT/ND, BT present in all 4 quadrants (slightly hyperactive), no organomegaly or masses EXTR: warm, well perfused, no C/C/E SKIN: warm and dry, no rash NEURO: Alert and oriented x 3, nonfocal Objective Labs 10/28/22 04:35 10/28/22 04:35 Labs: Laboratory Results - last 24 hr 10/28/22 10/28/22 10/28/22 00:00 04:35 04:35 WBC 5.8 RBC 4.44 Hgb 12.3 Hct 37.6 MCV 84.7 MCH 27.8 MCHC 32.8 RDW 14.1 Plt Count 184 Neut % (Auto) 87.3 H Lymph % (Auto) 6.3 L Gem % (Auto) 6.0 Eos % (Auto) 0.3 L Baso % (Auto) 0.1 Neut # (Auto) 5000 Lymph # (Auto) 400 L Gem # (Auto) 300 Eos # (Auto) 0 Baso # (Auto) 0 Sodium 136 L Potassium 3.9 Chloride 102 Carbon Dioxide 29 BUN 10 Creatinine 0.63 Estimated GFR > 60 BUN/Creatinine Ratio 15.9 Glucose 112 H Calcium 8.2 L Magnesium 1.5 L SARS-CoV-2 (PCR) Negative [facility] Medical History (Updated 10/28/22 @ 00:50 by EMERSON Gabriel) History of pancreatitis Surgical History (Updated 10/28/22 @ 00:50 by EMERSON Gabriel) History of appendectomy History of cholecystectomy Family History Father No problems noted. Mother No problems noted. Social History household members: spouse Smoking Status: Unknown if ever smoked Assessment & Plan Assessment & Plan narrative: 1. Colitis, secondary to acute C diff and norovirus Continue fidaxomicin b.i.d.. Will add probiotics. Overall improved stooling pattern. Continue supportive care for the norovirus inclusive antiemetics and IV fluids. Encouraged her to work on increasing her oral fluid intake she agrees. 2. GERD, chronic Patient is on [id number] famotidine. This will be continued. She is scheduled for an EGD on an outpatient basis in the coming weeks. 3. Hypomagnesemia Potassium is within normal limits. Suspect the low magnesium is secondary to GI losses. Will replete orally. 4. Class 1 obesity BMI is 30.7. Would benefit from weight reduction Code status Full Prophylaxis On Lovenox Disposition Possibly home in 24-48 hours
[2022-10-28] MEDS: LACTOBACILLUS ACIDOPHILUS TABLET 1 EACH PO (17:05)
--- NOTE | 2022-10-28 18:37 | PC.NURSE ---
Pt arrived from ED on stretcher at 1730, A&Ox4, no c/o pain, nausea or SOB. Able to ambulate independently. Lung sounds CTA, bowel sounds present. Hypertensive but otherwise VSS, see chart. Meds administered per SEP, fluids restarted. Pt oriented to room and call light, bed in low position.
[2022-10-29] VITALS (8 sets, daily range): BP systolic 131–164; BP diastolic 72–92; PULSE 75–100; RESP 16–20; TEMP 36.1–36.9; O2SAT 95–100
[2022-10-29] MEDS: LACTATED RINGERS 1,000 ML 80 ML IV ×2 (00:41→13:16)
[2022-10-29 07:08] LABS: Add Manual Diff / Slide Review NO; Basophils Absolute Auto 0 /uL (0-100); Basophils Percent Auto 0.4 % (0-2); Eosinophils Absolute Auto 0 /uL (0-450); Hematocrit 35.6 % (36-46); Hemoglobin 11.9 g/dL (12.0-16.0); Lymphocytes Absolute Auto 1200 /uL (1100-4500); Mean Corpuscular HGB Conc 33.5 % (30-36); Mean Corpuscular Hemoglobin 28.4 PG (26-34); Mean Corpuscular Volume 84.9 fL (80-100); Monocytes Absolute Auto 500 /uL (0-900); Monocytes Percent Auto 9.7 % (3-14); Neutrophils Absolute Auto 3000 /uL (1500-7000); Neutrophils Percent Auto 63.9 % (50-75); Platelet Count 198 X10^3/uL (150-400); Red Blood Cell Count 4.19 X10^6/uL (4.0-5.2); Red Cell Distribution Width 14.1 % (11.6-14.8); White Blood Cell Count 4.7 X10^3/uL (4.5-11.0)
[2022-10-29 07:28] LABS: Blood Urea Nitrogen 6 mg/dL (7-17); Calcium 8.4 mg/dL (8.4-10.2); Carbon Dioxide 31 mmol/L (22-32); Chloride 102 mmol/L (98-107); Estimated Glomerular Filt Rate > 60 mL/min (>60); Glucose 90 mg/dL (80-110); HEMOLYSIS < 15 (0-50); Magnesium 1.8 mg/dL (1.6-2.3); Potassium 3.4 mmol/L (3.4-5.1); Sodium 139 mmol/L (137-145)
[2022-10-29] MEDS: ONDANSETRON 4 MG/2 ML INJ IV (08:25)
[2022-10-29] MEDS: ENOXAPARIN 40 MG/0.4 ML SYRINGE SUBCUT (08:26)
[2022-10-29] MEDS: LACTOBACILLUS ACIDOPHILUS TABLET 1 EACH PO ×3 (08:26→17:04)
[2022-10-29] MEDS: FAMOTIDINE 20 MG/2 ML VIAL IV ×2 (08:26→21:10)
[2022-10-29] MEDS: FIDAXOMICIN 200 MG TABLET PO ×2 (08:26→21:10)
[2022-10-29] MEDS: POTASSIUM CHLORIDE 20 MEQ TAB 40 MEQ PO (10:15)
--- NOTE | 2022-10-29 11:51 | CM.DPNOTE ---
Discharge Planning Note: Met with patient in her room, she state she is feeling a little better and that the anti nausea medicine is working, she is still having diarrhea. 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 Plan: Discharge home to care of spouse when medically cleared. Ivet Valenzuela RN/DCP
[2022-10-29 15:58] LABS: C difficie Toxins A and B, EIA Negative (Negative)
--- NOTE | 2022-10-29 17:05 | P.PN_ITS ---
Subjective Subjective Interval history: 72-year-old Female with GERD, history of pancreatitis, split pancreas with 2 bile ducts (?pancreas divisum), GERD was admitted on the evening of 10/27/2022 with C diff colitis and norovirus.? Patient reports she is feeling better overall today. She has had 16 bowel movem ents in 24 hours. She does note the volume seems to be decreasing. However, she can simply cough or sneeze and have leakage of stool. She is tolerating a little bit of oral intake. She is had a cracker, some applesauce, and some yogurt. She is also drinking about 3 cups of water every 12 hours. She does continue to have some intermittent dry heaving. No vomiting. Some abdominal cramping but she states she is no longer requiring pain medication. She does report her now has diarrhea as well. Exam Vital Signs (past 8 hours): - 10/29/22 10:57 10/29/22 13:49 10/29/22 13:49 Temperature 97.0 F L Pulse Rate 75 Respiratory Rate 16 Blood Pressure 155/92 H Pulse Oximetry 98 99 99 Oxygen Delivery Method Room Air Room Air Oxygen Flow Rate 0 0 Oxygen Delivery Method Room Air Oxygen Flow Rate 0 Narrative Exam Narrative: GEN:? Pleasant middle-aged female, Alert and oriented x 3, NAD HEENT:NC, Face symmetric CHEST: Respiratory excursions symmetric, CTAB CV: RRR, no M/R/G ABD: Soft, NT/ND, BT present in all 4 quadrants (slightly hyperactive), no organomegaly or masses EXTR: warm, well perfused, no C/C/E SKIN: warm and dry, no rash NEURO: Alert and oriented x 3, nonfocal Objective Labs 10/29/22 06:09 10/29/22 06:09 Labs: Laboratory Results - last 24 hr 10/27/22 10/29/22 10/29/22 10:05 06:09 06:09 WBC 4.7 RBC 4.19 Hgb 11.9 L Hct 35.6 L MCV 84.9 MCH 28.4 MCHC 33.5 RDW 14.1 Plt Count 198 Neut % (Auto) 63.9 D Lymph % (Auto) 25.0 [place] % (Auto) 9.7 Eos % (Auto) 1.0 L Baso % (Auto) 0.4 Neut # (Auto) 3000 Lymph # (Auto) 1200 [place] # (Auto) 500 Eos # (Auto) 0 Baso # (Auto) 0 Sodium 139 Potassium 3.4 Chloride 102 Carbon Dioxide 31 BUN 6 L Creatinine 0.75 Estimated GFR > 60 BUN/Creatinine Ratio 8.0 Glucose 90 Calcium 8.4 Magnesium 1.8 C. diff Toxin A&B (EIA) Negative [facility] Medical History (Updated 10/28/22 @ 00:50 by EMERSON Gabriel) History of pancreatitis Surgical History (Updated 10/28/22 @ 00:50 by EMERSON Gabriel) History of appendectomy History of cholecystectomy Family History Father No problems noted. Mother No problems noted. Social History household members: spouse Smoking Status: Never smoker Assessment & Plan Assessment & Plan narrative: 1. Colitis and gastroenteritis, secondary to acute C diff and norovirus infections Continue fidaxomicin b.i.d., probiotics, and IV fluids.? She did have increasing frequency of stools after my visit with her yesterday, which I suspect is secondary to overall improved hydration. Today she reports that her frequency is slowing down..? She continues to work on oral hydration with fluids. Encouraged her to have her get tested for C diff as well. 2. GERD, chronic Continue Pepcid IV. She is scheduled for an EGD on an outpatient basis in the coming weeks. 3. Hypomagnesemia Improved after repletion yesterday. Magnesium level is up 1.8. 4. Class 1 obesity BMI is 30.7.? Would benefit from weight reduction 5. Normocytic anemia Hemoglobin is mildly low at 11.9. It was within normal limits on admission, but was likely hemoconcentrated. Will monitor. Code status Full Prophylaxis On Lovenox Disposition Possibly home in 24 hours if her stool frequency is decreasing and she is able to maintain her hydration.
[2022-10-30] MEDS: LACTATED RINGERS 1,000 ML 80 ML IV (02:07)
[2022-10-30] MEDS: ACETAMINOPHEN 325 MG TABLET 650 MG PO ×2 (02:07→13:23)
[2022-10-30 03:40] VITALS: BP 139/90; PULSE 78; RESP 17; TEMP 36.2; O2SAT 95
[2022-10-30 07:19] LABS: Add Manual Diff / Slide Review NO; Basophils Absolute Auto 0 /uL (0-100); Basophils Percent Auto 0.6 % (0-2); Eosinophils Absolute Auto 100 /uL (0-450); Eosinophils Percent Auto 1.3 % (2-4); Hemoglobin 12.6 g/dL (12.0-16.0); Lymphocytes Absolute Auto 1600 /uL (1100-4500); Lymphocytes Percent Auto 32.6 % (25-40); Mean Corpuscular HGB Conc 33.2 % (30-36); Mean Corpuscular Hemoglobin 27.9 PG (26-34); Mean Corpuscular Volume 83.9 fL (80-100); Monocytes Absolute Auto 400 /uL (0-900); Monocytes Percent Auto 8.4 % (3-14); Neutrophils Absolute Auto 2800 /uL (1500-7000); Neutrophils Percent Auto 57.1 % (50-75); Platelet Count 215 X10^3/uL (150-400); Red Blood Cell Count 4.52 X10^6/uL (4.0-5.2); Red Cell Distribution Width 13.9 % (11.6-14.8); White Blood Cell Count 4.8 X10^3/uL (4.5-11.0)
[2022-10-30 07:34] LABS: BUN Creatinine Ratio 7.2 (6-22); Blood Urea Nitrogen 5 mg/dL (7-17); Calcium 8.7 mg/dL (8.4-10.2); Carbon Dioxide 29 mmol/L (22-32); Chloride 104 mmol/L (98-107); Estimated Glomerular Filt Rate > 60 mL/min (>60); Glucose 91 mg/dL (80-110); HEMOLYSIS < 15 (0-50); Magnesium 1.7 mg/dL (1.6-2.3); Potassium 3.8 mmol/L (3.4-5.1); Sodium 138 mmol/L (137-145)
[2022-10-30 08:00] VITALS: BP 144/93; PULSE 74; RESP 18; TEMP 36.1; O2SAT 98
[2022-10-30 08:30] VITALS: O2SAT 98
[2022-10-30] MEDS: ENOXAPARIN 40 MG/0.4 ML SYRINGE SUBCUT (09:11)
[2022-10-30] MEDS: FAMOTIDINE 20 MG TABLET PO (09:11)
[2022-10-30] MEDS: LACTOBACILLUS ACIDOPHILUS TABLET 1 EACH PO ×2 (09:11→12:26)
[2022-10-30] MEDS: FIDAXOMICIN 200 MG TABLET PO (09:15)
[2022-10-30 11:45] VITALS: BP 148/80; PULSE 68; RESP 19; TEMP 36.2; O2SAT 97
[2022-10-30 12:00] VITALS: O2SAT 97
[2022-10-30 16:30] VITALS: BP 142/73; PULSE 70; RESP 18; TEMP 36.2; O2SAT 96
--- NOTE | 2022-10-30 16:34 | PC.NURSE ---
Pt is ready for discharge home with Spouse. IV has been removed. Went over d/c instructions with Pt-discussed d/c meds, time of last dose, reviewed stroke education, reminded Pt to take her full course of abx as ordered and drink plenty of fluids to prevent constipation or dehydration and eat an easy to digest diet. Also recommended probiotics and yogurt or kefir. Reminded Pt to wash hands with soap and water. Pt denies further questions and is ready to be taken out as soon as she is dressed.
--- NOTE | 2022-10-31 19:15 | PM.DS.1 ---
History of Present Illness History of Present Illness Chief complaint: V/D/ABD pain feels like pancreatitis since 3am Narrative: Per H&P: Kathleen Linda is a 72-year-old female with history of prior pancreatitis, GERD, split pancreas with two bile ducts, dry eye arrived in ED with complaint of sudden onset 3:00 a.m. this morning epigastric pain, vomiting and diarrhea.? Patient states she is had persistent pain, radiates to her back, will get slightly better after she vomits and then build again until she vomits again.? Diarrhea watery without any bright red blood or black.?Patient denies any fevers or chills but states she is felt cold. Cholecystectomy 20 years ago, her last colonoscopy they found a precancerous polyp but required resection based on the location and they removed her appendix at the same time based on location.? No tobacco, rare alcohol nothing in the last several weeks.? No illicit.? Patient sees Dr. Jude Robbins at [facility] is her primary care.? Nurse practitioner through gastroenterology is Megan Hopkins with [facility] in [place] and Dr. Enriquez typically does her colonoscopies.? On admit patient boarding in ED, last vomited at 3:00 p.m. earlier today but continues to have ongoing diarrhea, failed oral challenge in the ED and is unable to keep anything down without vomiting, abdominal pain is controlled with medication.? Patient's vitals 98.2, 127/55, continues to be tachycardic 100-110, 16, 93% on 2 L. WBC 11.4, neutrophils 10,700, lymph 400, glucose 154, lactate, troponin are WNL, lipase 151.? Patient's abdomen pelvis CT no acute issues, hepatic steatosis small hiatal hernia.? EKG sinus tachycardia rate [address] or T-wave changes.? Patient is stable resting well in no distress, positive for C diff and norovirus.? Admitted for observation. ?On admit patient denies chest pain, shortness in breath, headache, changes in vision, difficulty swallowing, speech impairment, numbness, tingling, difficulty with ambulation, recent falls, head injury, LOC, fever, body aches, chills, cough, recent exposure to illness, urinary incontinence/retention, dysuria, frequency, urgency, hematuria,? melena, rashes, recent changes to medication, illness, injury, or trauma. Discharge Providers Provider Date of admission: 10/28/22 09:50 Discharge Date: 10/30/22 Primary care physician: Jude York MD Consults: 10/28/22 01:05 Consult to Dietitian, Adult Routine Comment: Reason For Exam: BMI 30.7 Discharge provider: Annemarie Branch MD Summary Hospital Course Discharge Diagnosis: 1. Colitis and gastroenteritis, secondary to acute C diff and norovirus infections 2. GERD, chronic 3. Hypomagnesemia, improved w/repletion 4. Class 1 obesity 5. Normocytic anemia Hospital Course: Pt was admitted w/profuse diarrhea, nausea, vomiting and abdominal cramping. She was unable to hold down food/fluids. She was dfound to have both norovirus and cdiff. She was placed on Dificid and treated w/IVFs, antiemetics and analgesics. She had slow, gradual improvement and by the date of discharge had not required any pain medication in 48 hours, was off IVF and meeting hydration needs, and was able to eat small meals. She is discharged in stable condition. Time Spent with Patient Time spent: Greater than 30 minutes Exam Vital Signs (past 8 hours): Oxygen Delivery Method Room Air Oxygen Flow Rate 0 Narrative Exam Narrative: GEN:? Pleasant middle-aged female, Alert and oriented x 3, NAD HEENT:NC, Face symmetric CHEST: Respiratory excursions symmetric, CTAB CV: RRR, no M/R/G ABD: Soft, NT/ND, BT present in all 4 quadrants (slightly hyperactive), no organomegaly or masses EXTR: warm, well perfused, no C/C/E SKIN: warm and dry, no rash NEURO: Alert and oriented x 3, nonfocal Objective Labs 10/30/22 07:13 10/30/22 07:13 [facility] Medical History (Updated 10/28/22 @ 00:50 by EMERSON Gabriel) History of pancreatitis Surgical History (Updated 10/28/22 @ 00:50 by EMERSON Gabriel) History of appendectomy History of cholecystectomy Family History Father No problems noted. Mother No problems noted. Social History (Reviewed 04/07/23 @ 00:51 by Amelia Fisher [facility]) household members: spouse Smoking Status: Never smoker Discharge Plan Discharge Plan Patient Disposition: Home Provider Discharge Comment: Continue antibiotics until gone. You may return to work when antibiotics have been complete and your stools become more formed. Recommend that you take probiotics twice daily for the next month ([id number] Culturelle will be fine). Additionally, I recommend that you drink Momo or eat yogurt with live cultures daily. Continue working on your fluid intake. If you have large volume diarrhea take additional fluids in. Would use caution with excessive dairy intake, high-fiber, or high gluten foods until your bowels have normalized bit more. Returned to the emergency department for recurring fevers, diarrhea, black/tarry stools, blood in your stool, increasing abdominal pain, or inability to hold down food or fluids. Discharge orders & Medications Prescriptions: New famotidine [Pepcid AC] 20 mg Tablet 20 mg PO BID Qty: 60 0RF vancomycin 125 mg capsule 125 mg PO QID Qty: 20 0RF Continued cyclosporine [Restasis] 0.05 % Dropperette 1 drp EYE-BOTH PRN PRN (Reason: Dry Eye(S)) Follow up/Referrals: Jude York MD [Primary Care Provider] - Diet/Activity/Treatments Diet: Diet as Tolerated Activity: As tolerated Oxygen: N/A Visit Report/Discharge Packet Instructions: Vancomycin, Famotidine, DI for Norovirus Infection, Clostridioides (Clostridium) difficile Infection Stand Alone Forms: Patient Portal/API, Stroke Signs & Symptoms Discharge Data Primary Care Provider: Jude York Discharges patient from system. Discharge Date/Time: 10/30/22 16:40
== END 2022-10-30 16:40 | disposition home or self-care (01) | DRG 392 ==
LOC: ED 10:12 → AC 16:28
PROVIDERS: Admitting Provider Internal Medicine; Emergency Provider Emergency Medicine; PCP Family Medicine; Referring Provider Emergency Medicine; Visit Provider Internal Medicine
DX: A08.11 Acute gastroenteropathy due to Norwalk agent (principal); A04.72 Enterocolitis due to Clostridium difficile, not specified as recurrent; K21.9 Gastro-esophageal reflux disease without esophagitis; E83.42 Hypomagnesemia; E66.9 Obesity, unspecified; Z20.822 Contact with and (suspected) exposure to COVID-19; Z68.30 Body mass index [BMI] 30.0-30.9, adult
CPT/HCPCS: 36415; 74177; 80048; 80053; 82550; 83605; 83690; 83735; 84484; 85025; 85610; 85730; 87040; 87324; 87507; 87635; 93005; 94760; 96365; 96366; 96375; 96376; 99284; 99285; C9803; G0378; A9270; C9113; J1170; J1650; J2270; J2405; J2765; J3475; Q9967

== ENCOUNTER 2024-09-17 05:45 | Emergency (ER) | payer OTHER, SELFPAY ==
[2022-10-28 17:07] VITALS: BMI 30.7
[2024-09-17] VITALS (10 sets, daily range): BP systolic 142–161; BP diastolic 62–87; PULSE 90–105; RESP 15–23; TEMP 36.6; O2SAT 96–99; BMI 29.8
--- NOTE | 2024-09-17 05:52 | ED.ABDPAIN ---
HPI - Abdominal Pain <Jeffry Akers, - Last Filed: 09/17/24 06:40> General Chief Complaint: Nausea/Vomiting/Diarrhea Stated Complaint: possible c-diff Time Seen by Provider: 09/17/24 05:47 History of Present Illness HPI narrative: Patient is a 74-year-old female no significant past medical history comes into the ED from home for evaluation of epigastric pain nausea vomiting diarrhea states it started spontaneously last night states that yesterday she did go out to eat with her friends but nobody else has not had any issues with food. She describes the sensation as a pressure in her epigastric region had 1 episode of loose stool prior to arrival. She states that she is concerned she might have C diff again given the fact that she had similar symptoms like this approximately 1-2 years ago and was diagnosed with both norovirus and C diff. she states that at that time she ?waited too long and required admission to the hospital because she was not able to tolerate anything by mouth. She states that she does not know how she got C diff in the past she currently denies any known exposures recently, is not on any or has not been taking any antibiotics. She states she does have a history of pancreatitis and is status post cholecystectomy. She currently denies any headache visual disturbances chest pain fever chills or any other GI/ symptoms at this time. Related Data Home Medications Medication Instructions Recorded Confirmed cyclosporine 0.05 % eye drops in a 1 drp EYE-BOTH PRN PRN Dry Eye(S) 10/30/22 10/30/22 dropperette (Restasis) Previous Rx's Medication Instructions Recorded famotidine 20 mg tablet (Pepcid AC) 20 mg PO BID #60 tabs 10/30/22 vancomycin 125 mg capsule 125 mg PO QID #20 caps 10/30/22 Allergies Allergy/AdvReac Type Severity Reaction Status Date / Time codeine Allergy Verified 10/27/22 09:19 Sulfa (Sulfonamide Allergy Verified 10/27/22 09:19 Antibiotics) Review of Systems <Jeffry Akers, - Last Filed: 09/17/24 06:40> Review of Systems Narrative: General: Denies fever, chills, weight loss HEENT: Denies headache, eye drainage, eye irritation, head trauma, sore throat, voice change Cardiovascular: Denies any chest pain, palpitations, shortness of breath, tachycardia Respiratory: Denies any shortness of breath, cough, wheeze, stridor GI/: Positive epigastric abdominal pain, nausea, vomiting, diarrhea, denies bright red blood per rectum, melanotic stools, urinary frequency, urinary retention, dysuria, hematuria MSK: Denies any joint pain, muscle pains, swelling Skin: Denies any rashes, lesions, discoloration Neuro: Denies any headache, lightheadedness, dizziness, fainting, weakness Psych: Denies SI/HI Patient History <Jeffry Akers DO - Last Filed: 09/17/24 06:40> Medical History (Updated 09/17/24 @ 09:11 by Lizzie Alexander DO) History of pancreatitis Surgical History (Updated 10/28/22 @ 00:50 by LIN Gabriel-MARTÍN) History of appendectomy History of cholecystectomy Family History Father No problems noted. Mother No problems noted. Social History household members: spouse Smoking Status: Never smoker Smoking Status: Never smoker alcohol intake frequency: holidays/special occasions only Exam <Jeffry Akers DO - Last Filed: 09/17/24 06:40> Narrative Exam Narrative: General: Cooperative, comfortable, well-developed, not in acute distress HEENT: Normocephalic, atraumatic, PERRLA, normal sclera, eyelids normal, Neck: Active full range of motion, atraumatic Chest: Normal to inspection, negative crepitus, no overlying erythema ecchymosis Respiratory: Normal respiratory effort, not in acute respiratory distress, clear to auscultation bilaterally negative cough, wheeze, tachypnea, rhonchi, rales Cardiology: Regular rate rhythm negative gallop, murmur, rubs GI/: Normal to inspection, soft, nonrigid, mild tenderness to palpation epigastric region, exam deferred MSK: Full range of active range of motion of all 4 extremities, atraumatic Skin: No rashes lesions noted Neuro: Alert awake oriented x3, moves all 4 extremities spontaneously, cranial nerves intact, able to answer all questions appropriately follows commands appropriately Psych: Cooperative, negative suicidal or homicidal ideations Initial Vital Signs Initial Vital Signs: Vital Signs Temperature 98 F 09/17/24 05:54 Pulse Rate 105 H 09/17/24 05:54 Respiratory Rate 20 09/17/24 05:54 Blood Pressure 160/87 H 09/17/24 05:54 Pulse Oximetry 97 09/17/24 05:54 Oxygen Delivery Method Room Air 09/17/24 05:54 <Lizzie Alexander, DO - Last Filed: 09/17/24 18:50> Initial Vital Signs Initial Vital Signs: Vital Signs Temperature 98 F 09/17/24 05:54 Pulse Rate 105 H 09/17/24 05:54 Respiratory Rate 20 09/17/24 05:54 Blood Pressure 160/87 H 09/17/24 05:54 Pulse Oximetry 97 09/17/24 05:54 Oxygen Delivery Method Room Air 09/17/24 05:54 Course <Jeffry Akers, DO - Last Filed: 09/17/24 06:40> Orders Ordered: Discontinued Medications Famotidine (Famotidine 20 Mg/2 Ml Vial) 20 mg IV NOW ONE Stop: 09/17/24 05:58 Last Admin: 09/17/24 06:00 Dose: 20 mg Documented By: TREY Sodium Chloride (Normal Saline 0.9%) 1,000 mls @ 1,000 mls/hr IV BOLUS ONE Stop: 09/17/24 06:51 Last Infusion: 09/17/24 08:04 Dose: Infused Documented By: Admin: 09/17/24 05:59 Dose: 1,000 mls/hr Documented By: TREY Ondansetron HCl (Ondansetron 4 Mg/2 Ml Inj) 4 mg IV NOW ONE Stop: 09/17/24 05:58 Last Admin: 09/17/24 06:00 Dose: 4 mg Documented By: TREY Vital Signs Vital signs: Vital Signs - 8 hr 09/17/24 05:54 09/17/24 06:03 09/17/24 06:30 Temperature 98 F Pulse Rate 105 H 96 H 95 H Respiratory Rate 20 23 Blood Pressure 160/87 H Pulse Oximetry 97 96 99 Oxygen Delivery Method Room Air 09/17/24 06:30 09/17/24 06:51 09/17/24 06:51 Temperature Pulse Rate 99 H Respiratory Rate 20 Blood Pressure 156/69 H 161/71 H Pulse Oximetry 99 Oxygen Delivery Method Room Air 09/17/24 07:00 09/17/24 07:00 09/17/24 07:30 Temperature Pulse Rate 96 H 93 H Respiratory Rate 15 19 Blood Pressure 152/62 H Pulse Oximetry 99 98 Oxygen Delivery Method Room Air 09/17/24 07:30 09/17/24 08:00 09/17/24 08:00 Temperature Pulse Rate 94 H Respiratory Rate 19 Blood Pressure 153/70 H 154/72 H Pulse Oximetry 98 Oxygen Delivery Method 09/17/24 08:30 09/17/24 08:31 09/17/24 08:31 Temperature Pulse Rate 94 H 93 H Respiratory Rate 23 17 Blood Pressure 155/63 H Pulse Oximetry 98 99 Oxygen Delivery Method 09/17/24 09:00 09/17/24 09:00 Temperature Pulse Rate 90 Respiratory Rate 20 Blood Pressure 142/71 H Pulse Oximetry 99 Oxygen Delivery Method <Lizzie Alexander, - Last Filed: 09/17/24 18:50> Orders Ordered: Discontinued Medications Famotidine (Famotidine 20 Mg/2 Ml Vial) 20 mg IV NOW ONE Stop: 09/17/24 05:58 Last Admin: 09/17/24 06:00 Dose: 20 mg Documented By: TREY Sodium Chloride (Normal Saline 0.9%) 1,000 mls @ 1,000 mls/hr IV BOLUS ONE Stop: 09/17/24 06:51 Last Infusion: 09/17/24 08:04 Dose: Infused Documented By: Admin: 09/17/24 05:59 Dose: 1,000 mls/hr Documented By: TREY Ondansetron HCl (Ondansetron 4 Mg/2 Ml Inj) 4 mg IV NOW ONE Stop: 09/17/24 05:58 Last Admin: 09/17/24 06:00 Dose: 4 mg Documented By: TREY Vital Signs Vital signs: Vital Signs - 8 hr 09/17/24 05:54 09/17/24 06:03 09/17/24 06:30 Temperature 98 F Pulse Rate 105 H 96 H 95 H Respiratory Rate 20 23 Blood Pressure 160/87 H Pulse Oximetry 97 96 99 Oxygen Delivery Method Room Air 09/17/24 06:30 09/17/24 06:51 09/17/24 06:51 Temperature Pulse Rate 99 H Respiratory Rate 20 Blood Pressure 156/69 H 161/71 H Pulse Oximetry 99 Oxygen Delivery Method Room Air 09/17/24 07:00 09/17/24 07:00 09/17/24 07:30 Temperature Pulse Rate 96 H 93 H Respiratory Rate 15 19 Blood Pressure 152/62 H Pulse Oximetry 99 98 Oxygen Delivery Method Room Air 09/17/24 07:30 09/17/24 08:00 09/17/24 08:00 Temperature Pulse Rate 94 H Respiratory Rate 19 Blood Pressure 153/70 H 154/72 H Pulse Oximetry 98 Oxygen Delivery Method 09/17/24 08:30 09/17/24 08:31 09/17/24 08:31 Temperature Pulse Rate 94 H 93 H Respiratory Rate 23 17 Blood Pressure 155/63 H Pulse Oximetry 98 99 Oxygen Delivery Method 09/17/24 09:00 09/17/24 09:00 Temperature Pulse Rate 90 Respiratory Rate 20 Blood Pressure 142/71 H Pulse Oximetry 99 Oxygen Delivery Method MDM - Abdominal Pain <Jeffry Akers DO - Last Filed: 09/17/24 06:40> Differential Diagnosis Differential diagnosis: Likely abdominal pain, constipation, diverticulitis, gastroenteritis, pancreatitis, small bowel obstruction and other (Norovirus, C diff, ACS, pneumonia, electrolyte abnormality, urinary tract infection) Lab Data 09/17/24 05:55 09/17/24 05:55 Labs: Lab Results 09/17/24 09/17/24 Range/Units 05:55 06:28 WBC 13.1 H (4.5-11.0) X10^3/uL RBC 4.89 (4.0-5.2) X10^6/uL Hgb 13.7 (12.0-16.0) g/dL Hct 41.9 (36-46) % MCV 85.7 (80-100) fL MCH 28.0 (26-34) PG MCHC 32.6 (30-36) % RDW 13.9 (11.6-14.8) % Plt Count 259 (150-400) X10^3/uL Neut % (Auto) 89.0 H (50-75) % Lymph % (Auto) 5.7 L (25-40) % Whiteside % (Auto) 4.6 (3-14) % Eos % (Auto) 0.4 L (2-4) % Baso % (Auto) 0.3 (0-2) % Neut # (Auto) 86687 H (2041-8256) /uL Lymph # (Auto) 800 L (0352-6578) /uL Whiteside # (Auto) 600 (0-900) /uL Eos # (Auto) 100 (0-450) /uL Baso # (Auto) 0 (0-100) /uL Sodium 141 (137-145) mmol/L Potassium 4.2 (3.4-5.1) mmol/L Chloride 109 H (98-107) mmol/L Carbon Dioxide 25 (22-32) mmol/L BUN 21 H (7-17) mg/dL Creatinine 0.84 (0.52-1.04) mg/dL Estimated GFR > 60 (>60) mL/min BUN/Creatinine Ratio 25.0 H (6-22) Glucose 125 H (80-110) mg/dL Lactate 1.4 (0.7-2.1) mmol/L Calcium 9.5 (8.4-10.2) mg/dL Magnesium 1.7 (1.6-2.3) mg/dL Total Bilirubin 0.5 (0.2-1.3) mg/dL AST 30 (14-36) IU/L ALT 29 (<35) IU/L Alkaline Phosphatase 67 (38-126) U/L Total Creatine Kinase 57 (30-135) U/L Troponin I < 0.012 (0.01-0.034) ng/mL Total Protein 7.2 (6.3-8.2) g/dL Albumin 4.4 (3.5-5.0) g/dL Globulin 2.8 (1.7-4.1) g/dL Albumin/Globulin Ratio 1.6 (1.0-2.8) Lipase 181 (23-300) U/L Urine Color Yellow Urine Appearance Clear Urine pH 5.5 (4.5-8.0) Ur Specific [place] >=1.030 H (1.000-1.035) Urine Protein Negative (Negative) Urine Glucose (UA) Negative (Negative) g/dL Urine Ketones Trace H (NEGATIVE) Urine Occult Blood Negative (Negative) Urine Nitrate Negative (Negative) Urine Bilirubin Negative (NEGATIVE) Urine Urobilinogen 0.2 (0.2) E.U./dL Ur Leukocyte Esterase Trace H (NEGATIVE) Urine RBC 0-1/hpf (0-5/HPF) Urine WBC 0-1/hpf (0-5/HPF) Ur Squamous Epith Cells 1-5 /hpf (0-5/HPF) Amorphous Sediment 1+ Urine Bacteria Occasional (0-1) (None) Ur Culture Indicated? Cult not indicated Vol Urine Centrifuged 10ml (spun) Stl C. cayetanensis PCR Not detected (Not Detect) Stool Rotavirus (PCR) Not detected (Not Detect) Stool Adenovirus (PCR) Not detected (Not Detect) Stool Astrovirus (PCR) Not detected (Not Detect) Stool Cryptosporidium PCR Not detected (Not Detect) Stl E.coli Shiga Tox PCR Not detected (Not Detect) St Sh/Enteroin Ecoli PCR Not detected (Not Detect) Stl Enterotoxigenic E PCR Not detected (Not Detect) Stool EPEC (PCR) Not detected (Not Detect) Stl E. histolytica PCR Not detected (Not Detect) Stool Giardia Lamblia PCR Not detected (Not Detect) Stool Sapovirus (PCR) Not detected (Not Detect) Stl P. shigelloides PCR Not detected (Not Detect) St Y.enterocolitica PCR Not detected (Not Detect) Stool Vibrio (PCR) Not detected (Not Detect) Stl Vibrio cholerae PCR Not detected (Not Detect) Stl Enteroaggr Ecoli PCR Not detected (Not Detect) Stl Norovirus GI/GII PCR Not detected (Not Detect) Campylobacter (PCR) Not detected (Not Detect) C. difficile Tox (PCR) Not detected (Not Detect) Salmonella (PCR) Not detected (Not Detect) Imaging Data Chest x-ray: Radiologist's Impression: Preliminary read showing no acute cardiopulmonary abnormalities. ECG Data Interpretation: EKG interpreted ED physician sinus 93 beats per minute QTC 494, right bundle-branch block noted, normal axis nonspecific ST changes no STEMI MDM Narrative Medical decision making narrative: 74-year-old female presenting for epigastric pain nausea vomiting diarrhea started spontaneously last night, states he has a history of C diff. patient without any recent antibiotic use no recent travel no known sick contacts. States that she had 1 episode of loose stool prior to arrival. At time of evaluation patient complaining of nausea and pressure to the epigastric region. CBC with slight leukocytosis at 13.1. Chem panel unremarkable 0700: Patient was signed out to Dr. Alexander, patient pending GI panel, CT scan and re-evaluation <Lizzie Alexander, DO - Last Filed: 09/17/24 18:50> Lab Data Labs: Lab Results 09/17/24 09/17/24 Range/Units 05:55 06:28 WBC 13.1 H (4.5-11.0) X10^3/uL RBC 4.89 (4.0-5.2) X10^6/uL Hgb 13.7 (12.0-16.0) g/dL Hct 41.9 (36-46) % MCV 85.7 (80-100) fL MCH 28.0 (26-34) PG MCHC 32.6 (30-36) % RDW 13.9 (11.6-14.8) % Plt Count 259 (150-400) X10^3/uL Neut % (Auto) 89.0 H (50-75) % Lymph % (Auto) 5.7 L (25-40) % Whiteside % (Auto) 4.6 (3-14) % Eos % (Auto) 0.4 L (2-4) % Baso % (Auto) 0.3 (0-2) % Neut # (Auto) 51269 H (1681-7834) /uL Lymph # (Auto) 800 L (9143-7482) /uL Whiteside # (Auto) 600 (0-900) /uL Eos # (Auto) 100 (0-450) /uL Baso # (Auto) 0 (0-100) /uL Sodium 141 (137-145) mmol/L Potassium 4.2 (3.4-5.1) mmol/L Chloride 109 H (98-107) mmol/L Carbon Dioxide 25 (22-32) mmol/L BUN 21 H (7-17) mg/dL Creatinine 0.84 (0.52-1.04) mg/dL Estimated GFR > 60 (>60) mL/min BUN/Creatinine Ratio 25.0 H (6-22) Glucose 125 H (80-110) mg/dL Lactate 1.4 (0.7-2.1) mmol/L Calcium 9.5 (8.4-10.2) mg/dL Magnesium 1.7 (1.6-2.3) mg/dL Total Bilirubin 0.5 (0.2-1.3) mg/dL AST 30 (14-36) IU/L ALT 29 (<35) IU/L Alkaline Phosphatase 67 (38-126) U/L Total Creatine Kinase 57 (30-135) U/L Troponin I < 0.012 (0.01-0.034) ng/mL Total Protein 7.2 (6.3-8.2) g/dL Albumin 4.4 (3.5-5.0) g/dL Globulin 2.8 (1.7-4.1) g/dL Albumin/Globulin Ratio 1.6 (1.0-2.8) Lipase 181 (23-300) U/L Urine Color Yellow Urine Appearance Clear Urine pH 5.5 (4.5-8.0) Ur Specific [place] >=1.030 H (1.000-1.035) Urine Protein Negative (Negative) Urine Glucose (UA) Negative (Negative) g/dL Urine Ketones Trace H (NEGATIVE) Urine Occult Blood Negative (Negative) Urine Nitrate Negative (Negative) Urine Bilirubin Negative (NEGATIVE) Urine Urobilinogen 0.2 (0.2) E.U./dL Ur Leukocyte Esterase Trace H (NEGATIVE) Urine RBC 0-1/hpf (0-5/HPF) Urine WBC 0-1/hpf (0-5/HPF) Ur Squamous Epith Cells 1-5 /hpf (0-5/HPF) Amorphous Sediment 1+ Urine Bacteria Occasional (0-1) (None) Ur Culture Indicated? Cult not indicated Vol Urine Centrifuged 10ml (spun) Stl C. cayetanensis PCR Not detected (Not Detect) Stool Rotavirus (PCR) Not detected (Not Detect) Stool Adenovirus (PCR) Not detected (Not Detect) Stool Astrovirus (PCR) Not detected (Not Detect) Stool Cryptosporidium PCR Not detected (Not Detect) Stl E.coli Shiga Tox PCR Not detected (Not Detect) St Sh/Enteroin Ecoli PCR Not detected (Not Detect) Stl Enterotoxigenic E PCR Not detected (Not Detect) Stool EPEC (PCR) Not detected (Not Detect) Stl E. histolytica PCR Not detected (Not Detect) Stool Giardia Lamblia PCR Not detected (Not Detect) Stool Sapovirus (PCR) Not detected (Not Detect) Stl P. shigelloides PCR Not detected (Not Detect) St Y.enterocolitica PCR Not detected (Not Detect) Stool Vibrio (PCR) Not detected (Not Detect) Stl Vibrio cholerae PCR Not detected (Not Detect) Stl Enteroaggr Ecoli PCR Not detected (Not Detect) Stl Norovirus GI/GII PCR Not detected (Not Detect) Campylobacter (PCR) Not detected (Not Detect) C. difficile Tox (PCR) Not detected (Not Detect) Salmonella (PCR) Not detected (Not Detect) MDM Narrative Medical decision making narrative: 74-year-old female presenting for epigastric pain nausea vomiting diarrhea started spontaneously last night, states he has a history of C diff. patient without any recent antibiotic use no recent travel no known sick contacts. States that she had 1 episode of loose stool prior to arrival. At time of evaluation patient complaining of nausea and pressure to the epigastric region. CBC with slight leukocytosis at 13.1. Chem panel unremarkable 0700: Patient was signed out to Dr. Alexander, patient pending GI panel, CT scan and re-evaluation 09/17/24 Dr. Alexander 0813: Patient signed out to myself patient presents with nausea vomiting diarrhea some epigastric pain started last night has a history of C diff in conjunction with norovirus in the past. Has not had any other risk factors recently. Labs show a leukocytosis of 13.1, urinalysis does not show any signs of infection, GI panel was C diff is pending. Chest x-ray showed no acute change. Patient did have CT abdomen and pelvis results show fold thickening proximal jejunum may represent evidence of enteritis no acute abnormalities otherwise noted has a small hiatal hernia 2 small hypodense lesions in the liver compatible with cyst or angiomata. Status post cholecystectomy rest of solid organs are unremarkable stomach unremarkable: Demonstrates no acute abnormalities patient was status post appendectomy. 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 Gi panel is negative. Patient had fluids, Pepcid and Zofran. She is feeling much improved and had oral challenge with success. On recheck updated on GI panel. Reviewed findings patient is felt appropriate for discharge home discussed return precautions. Discharge Plan Departure Patient Disposition: Home Clinical Impression: Abdominal pain, vomiting, and diarrhea Activity Restrictions/Additional Instructions: Please follow up if your symptoms have not completely resolved. Your GI panel today was negative for C diff. Your CT noted a small hiatal hernia into small hypodense lesions in the liver compatible with a cyst or hemangioma, there has a little bit of fold thickening in the jejunal area this can be consistent with enteritis. You can increase your oral intake slowly over time and start to add solids later this afternoon if continuing to tolerate well. You can take ondansetron or Zofran 4 mg every 6 hours as needed for nausea/vomiting if needed Please return to the ER if you develop fevers, new or worsening abdominal back or flank pain, have persistent vomiting, persistent diarrhea, black or bloody stools or other new or concerning changes. Prescriptions: No Action cyclosporine [Restasis] 0.05 % Dropperette 1 drp EYE-BOTH PRN PRN (Reason: Dry Eye(S)) famotidine [Pepcid AC] 20 mg Tablet 20 mg PO BID Qty: 60 0RF vancomycin 125 mg capsule 125 mg PO QID Qty: 20 0RF Referrals: Jude York MD [Primary Care Provider] - Stand Alone Forms: Patient Portal/API/Survey
--- NOTE | 2024-09-17 05:54 | DI.RAD.S_ITS ---
PROCEDURE: XR CHEST 1V INDICATIONS: epigastric pain TECHNIQUE: One view of the chest was acquired. COMPARISON: None. FINDINGS: Surgical changes and devices: None. Lungs and pleura: Lungs are clear. No pleural effusions or pneumothorax. Mediastinum: Mediastinal contours appear normal. Heart size is mildly enlarged. Bones and chest wall: No suspicious bony lesions. Overlying soft tissues appear unremarkable. IMPRESSION: No acute cardiopulmonary pathology. No discrepancies. Dictated by: Irvin Wisdom M.D. on 09/17/2024 at 8:17 Approved by: Irvin Wisdom M.D. on 09/17/2024 at 8:17
--- NOTE | 2024-09-17 05:54 | DI.CT.S_ITS ---
PROCEDURE: CT ABDOMEN PELVIS W CON INDICATIONS: epigastric pain TECHNIQUE: After the administration of intravenous contrast, axial sections acquired from the lung bases to the pubic symphysis. Coronal and sagittal reformats were performed. For radiation dose reduction, the following was used: automated exposure control, adjustment of mA and/or kV according to patient size. COMPARISON: [facility], CT, CT ABDOMEN PELVIS W CON, 10/27/2022, 10:26. FINDINGS: Image quality: Diagnostic. Lower Chest: No significant findings. ABDOMEN: Liver: Unchanged low-attenuation foci likely cysts. Gallbladder: Not visualized. Biliary ducts: No biliary dilation. Pancreas: No ductal dilation. Spleen: Size is within normal limits. Adrenal Glands: No adrenal nodules. Kidneys and Ureters: No hydronephrosis. No solid mass. No complex renal cystic lesion which requires follow up. Stomach and Bowel: Normal colonic caliber, without significant wall thickening. Prominent hiatal hernia. Mild gastric wall thickening with incomplete distention. Peritoneum: No abnormal intraperitoneal fluid. No free air. Ventral Wall: No significant ventral hernia. Abdominal Nodes: No retroperitoneal or mesenteric adenopathy by size criteria. Vessels: Aorta and inferior vena cava are normal in size. PELVIS: Pelvic Organs: Unremarkable. Bladder: No bladder wall thickening, accounting for underdistention. Pelvic Nodes: No enlarged lymph nodes. Miscellaneous: No inguinal hernias are seen. Bones: No aggressive osseous abnormality. IMPRESSION: Prominent hiatal hernia. Mild gastric wall thickening. While this could be related to incomplete distention, etiology such as gastritis should be considered as appropriate. Dictated by: Vianey Mcpherson M.D. on 09/17/2024 at 12:41 Approved by: Vianey Mcpherson M.D. on 09/17/2024 at 12:45
[2024-09-17] MEDS: SODIUM CHLORIDE 0.9% 1,000 ML 1000 ML IV (05:59)
[2024-09-17] MEDS: ONDANSETRON 4 MG/2 ML INJ IV (06:00)
[2024-09-17] MEDS: FAMOTIDINE 20 MG/2 ML VIAL IV (06:00)
[2024-09-17 06:08] LABS: Add Manual Diff / Slide Review NO; Basophils Absolute Auto 0 /uL (0-100); Basophils Percent Auto 0.3 % (0-2); Eosinophils Absolute Auto 100 /uL (0-450); Eosinophils Percent Auto 0.4 % (2-4); Hematocrit 41.9 % (36-46); Hemoglobin 13.7 g/dL (12.0-16.0); Lymphocytes Absolute Auto 800 /uL (1100-4500); Lymphocytes Percent Auto 5.7 % (25-40); Mean Corpuscular HGB Conc 32.6 % (30-36); Mean Corpuscular Volume 85.7 fL (80-100); Monocytes Absolute Auto 600 /uL (0-900); Monocytes Percent Auto 4.6 % (3-14); Neutrophils Absolute Auto 11700 /uL (1500-7000); Platelet Count 259 X10^3/uL (150-400); Red Blood Cell Count 4.89 X10^6/uL (4.0-5.2); Red Cell Distribution Width 13.9 % (11.6-14.8); White Blood Cell Count 13.1 X10^3/uL (4.5-11.0)
--- NOTE | 2024-09-17 06:08 | EKG_ITS ---
[address] [address] Test Date: 2024-09-17 Pat Name: Kathleen Linda Department: [facility] Room: Gender: Female Dish Person: : 1950 Requested By: Order Number: [id number] Reading MD: Eben Rosa Measurements Intervals [employer] Rate: 93 P: 53 WA: 164 QRS: 15 QRSD: 126 T: 3 QT: 398 QTc: 494 Interpretive Statements Normal sinus rhythm Right bundle branch block Electronically Signed On 09-17-2024 11:13:59 PST by Eben Rosa
[2024-09-17 06:17] LABS: Creatine Kinase 57 U/L (30-135); Magnesium 1.7 mg/dL (1.6-2.3)
[2024-09-17 06:18] LABS: Lactate (Lactic Acid) 1.4 mmol/L (0.7-2.1)
[2024-09-17 06:27] LABS: Alanine Aminotransferase 29 IU/L (<35); Albumin 4.4 g/dL (3.5-5.0); Albumin Globulin Ratio 1.6 (1.0-2.8); Alkaline Phosphatase 67 U/L (38-126); Aspartate Aminotransferase 30 IU/L (14-36); Bilirubin Total 0.5 mg/dL (0.2-1.3); Blood Urea Nitrogen 21 mg/dL (7-17); Calcium 9.5 mg/dL (8.4-10.2); Carbon Dioxide 25 mmol/L (22-32); Chloride 109 mmol/L (98-107); Estimated Glomerular Filt Rate > 60 mL/min (>60); Globulin 2.8 g/dL (1.7-4.1); Glucose 125 mg/dL (80-110); HEMOLYSIS < 15 (0-50); Lipase 181 U/L (23-300); Potassium 4.2 mmol/L (3.4-5.1); Sodium 141 mmol/L (137-145); Total Protein 7.2 g/dL (6.3-8.2)
[2024-09-17 06:30] LABS: Troponin I < 0.012 ng/mL (0.01-0.034)
[2024-09-17 06:36] LABS: Appearance Urine UA CLEAR; Bilirubin Urine UA NEGATIVE (NEGATIVE); Color Urine UA YELLOW; Glucose Urine UA NEGATIVE (Negative); Ketones Urine UA TRACE (NEGATIVE); Leukocyte Esterase Urine UA TRACE (NEGATIVE); Nitrite Urine UA NEGATIVE (Negative); Occult Blood Urine UA NEGATIVE (Negative); Protein Urine UA NEGATIVE (Negative); Specific Gravity Urine UA >=1.030 (1.000-1.035); Urobilinogen Urine UA 0.2 E.U./dL (0.2)
[2024-09-17 06:40] LABS: pH Urine UA 5.5 (4.5-8.0)
[2024-09-17 06:44] LABS: Amorphous Sediment Urine 1+; Bacteria Urine Occasional (0-1); Culture Indicated Urine Cult Not Indicated; RBC Urine 0-1/HPF (0-5/HPF); Squamous Epithelial Cell Urine 1-5 /HPF (0-5/HPF); Urine Volume 10mL (spun); WBC Urine 0-1/HPF (0-5/HPF)
[2024-09-17 08:46] LABS: Adenovirus F 40/41 Not Detected (Not Detect); Astrovirus Not Detected (Not Detect); Campylobacter Not Detected (Not Detect); Clostridium difficile toxin AB Not Detected (Not Detect); Cryptosporidium Not Detected (Not Detect); Cyclospora cayetanensis Not Detected (Not Detect); Entamoeba histolytica Not Detected (Not Detect); Enteroaggregative E.coli Not Detected (Not Detect); Enteropathogenic E.coli Not Detected (Not Detect); Enterotoxigenic E.coli It/st Not Detected (Not Detect); Giardia lamblia Not Detected (Not Detect); Norovirus GI/GII Not Detected (Not Detect); Plesiomonsa shigelloides Not Detected (Not Detect); Rotavirus A Not Detected (Not Detect); Salmonella Not Detected (Not Detect); Sapovirus Not Detected (Not Detect); Shiga-like toxin-prod E.coli Not Detected (Not Detect); Shigella/Enteroinvasive E.coli Not Detected (Not Detect); Vibrio Not Detected (Not Detect); Vibrio cholerae Not Detected (Not Detect); Yersinia enterocolitica Not Detected (Not Detect)
== END 2024-09-17 09:18 | disposition home or self-care (01) ==
PROVIDERS: Student in an Organized Health Care Education/Training Program; Emergency Provider Emergency Medicine; PCP Family Medicine
DX: R10.13 Epigastric pain (principal); R11.2 Nausea with vomiting, unspecified; R19.7 Diarrhea, unspecified
CPT/HCPCS: 36415; 71045; 74177; 80053; 81001; 82550; 83605; 83690; 83735; 84484; 85025; 87507; 93005; 96361; 96374; 96375; 99284; J2405; Q9967